=== PATIENT | female | born 2005 | race Caucasian/White ===

== ENCOUNTER 2024-12-24 10:43 | Emergency (ER) | payer BC, SELFPAY ==
[2024-12-24 10:58] VITALS: BP 132/88; PULSE 88; RESP 16; TEMP 36.4; O2SAT 100
--- NOTE | 2024-12-24 11:04 | ED_ITS ---
HPI - Ear Problem General Chief complaint: Ear Stated complaint: Ear Pain/Abdominal Pain Patient presents to the [facility] with complaints of left ear and left side of neck pain that began over the last couple days. Patient also noted a bump in the inside of left ear near ear canal. Patient reports pain with movement in left ear. Reports having history problems with ears, denies any pain inside the ear, loss of hearing, cold-like symptoms, fever, chills, body aches, or lymph node swelling. Patient also noted recent right knee surgery and has been using consistent ibuprofen does also report upper middle abdominal pain that has been getting more consistent. Patient reports this is worse after taking ibuprofen. Denies vomiting, diarrhea, chest pain, palpitations. Related Data Allergies Allergy/AdvReac Type Severity Reaction Status Date / Time amoxicillin Allergy Unknown Verified 12/24/24 10:57 Review of Systems Constitutional: Constitutional: Reports as per HPI, Denies chills, Denies fatigue, Denies fever(s) and Denies weakness Eyes: Eyes: Reports no additional eye complaints ENT: Reports as per HPI, Denies vertigo, Denies dizziness, Denies nasal congestion and Denies sore throat Comments: Left outer ear pain, bump on left ear Cardiovascular: Cardiovascular: Reports no additional cardiovascular complaints Respiratory: Respiratory: Reports no additional respiratory complaints Gastrointestinal: Gastrointestinal: Reports as per HPI, Reports abdominal pain ( upper middle), Denies bloating, Denies constipation, Denies heartburn, Denies diarrhea, Reports nausea and Denies vomiting Genitourinary: Genitourinary: Reports no additional female genitourinary complaints Musculoskeletal: Musculoskeletal: Reports as per HPI, Denies back pain and Denies myalgias Integumentary/Breasts: Skin/Breast: Reports as per HPI, Denies erythema and Denies rash Comments: swelling and bump to left outer ear Neurologic: Reports as per HPI, Denies vertigo, Denies dizziness, Reports headache(s), Denies numbness and Denies weakness Psychiatric: Psychiatric: Reports no additional psychiatric complaints Endocrine: Endocrine: Reports no additional endocrine complaints Hematologic/Lymphatic: Hematologic/Lymphatic: Reports no additional hematologic/lymphatic complaints Allergic/Immunologic: Allergic/Immunologic: Reports no additional allergic/immunologic complaints Exam Const: General: healthy appearing and no acute distress Nutritional Appearance: well nourished Orientation/consciousness: patient oriented x3 Limitations: no limitations HENMT: Head: normal to inspection Ears: external ears abnormal and TM's normal bilaterally Face/Nose/Sinus: Normal external nose present and Normal nares present Face and sinus: normal facial exam and sinuses nontender Mouth: Yes Normal oral and palatal mucosa present, Yes lip normal and Yes moist mucous membranes Throat: posterior oropharynx normal Other: left external ear- minimal swelling to outer ear with mild redness to sowmya. Very small nontender papule to sowmya as well no concern for abscess. right ear normal. Neck: Neck: normal visual inspection and no lymphadenopathy Resp: Effort & Inspection: normal respiratory effort Auscultation: clear to auscultation bilaterally Cardio: Rate: regular rate Rhythm: regular rhythm GI: Inspection: normal to inspection and non-distended GI Palp: Yes abdominal tenderness (epigastric ), Yes Soft to palpation, No Firmness to palpation present (GI), Yes Tenderness to palpation present (GI), No Guarding due to palpation present (GI), No Rigid due to palpation and Yes No hepatosplenomegaly present Percussion: Yes normal to percussion Aus cultation: normal bowel sounds Skin: General skin exam: normal color Rashes: no rashes Wounds: no wounds Neuro: General: patient oriented x3 Speech: normal speech Gait exam (Neuro): Normal gait present Psych: Mental Status: mental status grossly normal Affect: normal affect Attitude: cooperative Course Course Level of Care: Express Care Visit Vital Signs Vital signs: Vital Signs Temperature 97.5 F L 12/24/24 10:58 Pulse Rate 88 12/24/24 10:58 Respiratory Rate 16 12/24/24 10:58 Blood Pressure 132/88 12/24/24 10:58 Pulse Oximetry 100 12/24/24 10:58 Oxygen Delivery Room Air 12/24/24 10:58 Temperature 97.5 F L 12/24/24 10:58 Pulse Rate 88 12/24/24 10:58 Respiratory Rate 16 12/24/24 10:58 Blood Pressure 132/88 12/24/24 10:58 Pulse Oximetry 100 12/24/24 10:58 Oxygen Delivery Room Air 12/24/24 10:58 Medical Decision Making MDM Narrative Medical decision making narrative: The patient was evaluated by myself in the express care. History is obtained from patient who is an independent historian and physical exam was performed. Available medical records were reviewed at this time. Exam findings show no acute concerns or changes; patient is non-toxic appearing and is in no distress. Patient is appropriate for outpatient treatment and follow-up. I have evaluated and discussed social determinants of health with the patient that could potentially impact subsequent diagnosis and treatment plans. Differential diagnosis and treatment plan were discussed with the patient. Patient agrees with discussion and after shared medical decision making agrees with plan of care. All questions were answered to the patient's satisfaction. Differential Diagnosis Differential Diagnosis: otitis media, otitis externa, cellulitis, GERD, gastritis. Medical Records Medical records reviewed: Yes I reviewed the external patient's medical records. Vital Signs Vital Signs: Vital Signs Temperature 97.5 F L 12/24/24 10:58 Pulse Rate 88 12/24/24 10:58 Respiratory Rate 16 12/24/24 10:58 Blood Pressure 132/88 12/24/24 10:58 Pulse Oximetry 100 12/24/24 10:58 Oxygen Delivery Room Air 12/24/24 10:58 Temperature 97.5 F L 12/24/24 10:58 Pulse Rate 88 12/24/24 10:58 Respiratory Rate 16 12/24/24 10:58 Blood Pressure 132/88 12/24/24 10:58 Pulse Oximetry 100 12/24/24 10:58 Oxygen Delivery Room Air 12/24/24 10:58 Discharge Plan Discharge Clinical Impression: Cellulitis of left external ear, Gastritis Patient Disposition: Home Condition: Stable Instructions: Antibiotic Form, Gastritis (ED), Cellulitis (ED), Diet for Stoma ch Ulcers and Gastritis (ED) Additional Instructions: Recommend using Pepcid 20 mg needed prior to taking antibiotic or ibuprofen. Clean with soap and water only; Avoid using alcohol and peroxide. Elevate the affected area if possible Alternate Tylenol/ibuprofen for as needed for pain Acetaminophen(Tylenol) 650- 1000mg every 4-6hours with max of 4000mg/day. Nonsteroidal anti-inflammatory agent (NSAIDs-ibuprofen): 400mg every 4-6hours with max 2400mg/day Take antibiotic until it's gone. Please schedule a follow up visit with your personal physician for further evaluation and treatment within 3-5days OR if your symptoms persist, change or worsen significantly before you can contact your personal physician then please, without delay, go to the emergency department for further evaluation. Patient Language: Angolan Prescriptions: New omeprazole 20 mg capsule,delayed release(DR/EC) 20 mg PO DAILY Qty: 30 0RF Rx Instructions: take first thing in the morning on empty stomach sulfamethoxazole-trimethoprim [Bactrim DS] 800-160 mg tablet 1 tablet PO Q12H Qty: 14 0RF triamcinolone acetonide 0.1 % cream 1 applic topical TID Qty: 80 0RF Follow-up/Referrals: PHYSICIAN,OPERATIONS EXPERT [Primary Care Provider, Internal Medicine] Time of Disposition: 11:07
== END 2024-12-24 11:14 | disposition home or self-care (01) ==
PROVIDERS: Emergency Provider Nurse Practitioner Family
DX: H60.12 Cellulitis of left external ear (principal); K29.70 Gastritis, unspecified, without bleeding
CPT/HCPCS: 99213; G0463